=== PATIENT | male | born 1975 | race Caucasian/White ===

== ENCOUNTER → 2018-12-31 | Outpatient (CLI) | payer BC ==
--- NOTE | 2018-12-31 14:03 | RADIOLOGY REPORT (SQ) ---
EXAM DESCRIPTION: MRI HEAD COMBO COMPLETED DATE/TIME: 12/31/2018 12:53 pm REASON FOR STUDY: JERK NYSTAGMUS (H55.09) H55.09 OTHER FORMS OF NYSTAGMUS COMPARISON: None. TECHNIQUE: Multiplanar imaging includes noncontrasted T1, T2, FLAIR, diffusion with ADC map and post gadolinium contrast T1 sequences. Images stored on PACS. Additional thin section axial T2 and axial and coronal pre and postcontrast T1 weighted images throug h the central skullbase and cavernous sinuses/orbits performed. Images saved to pac's. CONTRAST TYPE AND DOSE: 20 mL Dotarem. RENAL FUNCTION: Not indicated. ACR Type II contrast agent associated with few, if any, unconfounded cases of NSF LIMITATIONS: Mild motion artifact FINDINGS: ANATOMY: No developmental anomalies. Normal vascular flow voids. Pituitary fossa normal. CSF SPACES: Normal in size and contour. No hemorrhage. CEREBRUM: Sulci and gyri normal in size and contour. Normal white matter signal on FLAIR imaging. No evidence of hemorrhage, mass, or extraaxial fluid collection. No abnormal enhancement post contrast. POSTERIOR FOSSA: No signal alteration. No hemorrhage. No edema, masses, or mass effect. Internal charu tory canals, cerebellopontine angles, mastoids normal. No enhancing lesions. No abnormal enhancement post contrast. DIFFUSION IMAGING: Negative for acute or subacute infarction. ORBITS: No masses. Globes normal. Normal intra and extraconal fat. PARANASAL SINUSES: No fluid levels. Mucosa normal. OTHER: Thin section imaging through the central skullbase, basilar cisterns, brainstem and jacky, and orbital apices were performed. No abnormal masses or enhancement along the brainstem jacky or mid bra in. No abnormal cranial nerve enhancement. Normal basilar cisterns, Meckel's cave, cavernous sinuse s, and orbital apices. IMPRESSION: ESSENTIALLY NORMAL MRI OF THE BRAIN AND ORBITS WITHOUT AND WITH INTRAVENOUS GADOLINIUM C ONTRAST. EVIDENCE OF ACUTE STROKE: NO. TECHNICAL DOCUMENTATION: JOB ID: [id number] [employer]- All Rights Reserved Reading location - IP/workstation name: [email or web address]
== END ==
LOC: RAD 11:09
PROVIDERS: ATTEND Nurse Practitioner
DX: H55.09 Other forms of nystagmus (principal)
CPT/HCPCS: 82565; 70553; A9576